=== PATIENT | male | born 1975 | race Caucasian/White ===

== ENCOUNTER → 2018-01-01 | Outpatient (REF) ==
[~2018-01-01] MED LIST: TRAZODONE HCL50 MG PO
[2018-01-01 15:42] LABS: THYROID STIMULATING HORMONE 1.52 uIU/mL (0.465-4.680)
[2018-01-01 15:43] LABS: PSA-TOTAL 1.22 ng/mL (0-4)
== END ==
LOC: ZLAB.WCH 14:55
PROVIDERS: Internal Medicine
DX: Z01.89 Encounter for other specified special examinations (principal)
CPT/HCPCS: G0103

== ENCOUNTER 2019-02-04 08:15 | Outpatient (RCR) | payer OTHER | END 2019-02-08 13:26 | disposition home or self-care (01) | LOC: WSST 08:15 | DX: R41.89 Other symptoms and signs involving cognitive functions and awareness (principal); G43.909 Migraine, unspecified, not intractable, without status migrainosus; G57.00 Lesion of sciatic nerve, unspecified lower limb ==